=== PATIENT | female | born 1985 | race Caucasian/White ===

== ENCOUNTER 2019-05-04 11:50 | Day surgery (SDC) | payer OTHER ==
[~2019-05-04] VITALS: Ht 167.6 cm; Wt 101.8 kg
[2019-05-04 12:32] VITALS: BP 141/76; PULSE 87; TEMP 98
--- NOTE | 2019-05-04 12:50 | NUR ---
Having emesis of liquid returns. Zofran 4mg IV given.
--- NOTE | 2019-05-04 13:01 | NUR ---
Continues to complain of pain and medicated with Tordal 15mg IV. Will continue to monitor.
--- NOTE | 2019-05-04 15:21 | NUR ---
Awake and complains of pain. Morphine 3mg IV repeated for pain and allowed to rest.
[2019-05-04] MEDS ORDERED: EZFE 200200 MG PO (15:46)
[2019-05-04 17:00] VITALS: BP 132/64; PULSE 85; TEMP 97.6
--- NOTE | 2019-05-04 17:00 | NUR ---
PATIENT ADMITED INTO ROOM 328 POST OP RIGHT KIDNEY STONE REMOVAL. PATIENT REPORTS PAIN IS SO MUCH BETTER. PATIENT AMBULATED TO BATHROOM AND WAS ABLE TO VOID. C/O MILD BURING WITH URINATION. PATIENT GIVEN EDUCATION ABOUT POST KIDNEY STONE REMOVAL. AT BEDSIDE. VSS. WILL DISCHARGE HOME LATER TONIGHT. GIVEN SCRIPTS. PATIENT AND LIVE IN [place]. ORIENTED TO ROOM. LIQUIDS AND JELLO AT BEDSIDE. NO C/O N/V. IV FLUIDS INFUSING INTO LEFT HAND IV. NO OTHER NEEDS AT THIS TIME. CALL LIGHT IN REACH.
[2019-05-04 17:15] VITALS: BP 114/71; PULSE 91
[2019-05-04 17:30] VITALS: BP 117/71; PULSE 87
[2019-05-04 17:45] VITALS: BP 115/72; PULSE 86
--- NOTE | 2019-05-04 19:30 | NUR ---
Has met discharge criteria. Tolerating PO. Denies pain/nausea/shortness of breath. Has voided x3 without difficulty. VS stable. Discharge instructions given both verbal and handwritten. Discussed f/u appt, s/s of infection and home medications. Denies questions. IV DCd-cath intact. Discharged home in stable condition accompanied by .
[2019-05-04 19:45] VITALS: BP 116/68; PULSE 86; TEMP 98
== END 2019-05-04 19:45 | disposition home or self-care (01) ==
LOC: SDCO 11:50 → EDBD 11:50 → JCC 19:00 → SDCO 19:45
DX: N20.1 Calculus of ureter (principal)
CPT/HCPCS: OP; C1769; J0690; J1885; J2270; J2405; J2704; J3010; J7030; Q9967

== ENCOUNTER 2021-07-12 06:46 | Day surgery (SDC) | payer OTHER ==
[~2021-07-12] VITALS: Ht 167.6 cm; Wt 106.1 kg
[2021-07-12] VITALS (8 sets, daily range): BP systolic 107–122; BP diastolic 58–81; PULSE 77–95; TEMP 97.5–98.8
[~2021-07-12 06:46] MED LIST: EZFE 200200 MG PO
[2021-07-12] MEDS ORDERED: IRON TABLETS325 MG PO (08:13)
[2021-07-12] MEDS ORDERED: CRANBERRY FRUI425 MG PO (08:13)
[2021-07-12] MEDS ORDERED: OMEGA-3 1000 MG1 CAP PO (08:13)
[2021-07-12] MEDS ORDERED: PROBIOTIC-MAJOR PO (08:14)
[2021-07-12] MEDS ORDERED: MULTI VITAMINS1 TAB PO (08:14)
[2021-07-12] MEDS ORDERED: MOTRIN 800800 MG/TAB PO (08:27)
[2021-07-12] MEDS ORDERED: PERCOCET 325 MG1 TA2 PO (08:27)
--- NOTE | 2021-07-12 12:10 | NUR ---
Pt arrived on unit from PACU via bed. Report received. at the bedside. Oriented pt to room, bed and call light within reach. Plan of care reviewed.
--- NOTE | 2021-07-12 19:15 | NUR ---
PT RESTING IN BED WATCHING TV, NO SIGNS OF DISTRESS. PT REQUESTS PO TYLENOL TO HELP WITH BREAK THROUGH PAIN AND ALLOW FOR HER TO GET SOME REST. RN OFFERED WARM PACK FOR PT'S ABDOMEN AND SHE REFUSED AT THIS TIME. IV FLUSHED WITH 10ML NS, PT DENIES PAIN. NO REDNESSNESS NOTED AT THE SITE. SCDS APPLIED BILATERALLY, CALL LIGHT WITHIN REACH AND PT DENIES FURTHER NEEDS AT THIS TIME.
--- NOTE | 2021-07-12 21:00 | NUR ---
PT RESTING IN BED, NO SIGNS OF DISTRESS. PT REPORTS FEELING THE URGE TO URINATE. RN INSPECTED REED CATHETER TUBING AND NO KINKS ARE OBSERVED. RN DRAINED REED CATHETER RESERVE BACK OF 2500ML OF URINE. URINE IS CLEAR. PT STATES URGE TO URINATE IS GONE ONCE REED CATHETER BAG WAS DRAINED. PT GIVEN ONE 100MG SCHEDULED COLACE. PT STATES PAIN IS BETTER AFTER TYLENOL AND DENIES FURTHER NEEDS AT THIS TIME. CALL LIGHT IS WITHIN REACH.
--- NOTE | 2021-07-12 22:00 | NUR ---
PT CALLED RN TO BEDSIDE AND REPORTS FEELING THE URGE TO URINATE. RN INSPECTED REED CATHETER FOR KINKS AND ADJUSTED THE POSITION OF THE TUBING. FOLLOWING TUBING ADJUSTMENT, 800ML URINE DRAINED FROM BLADDER. PT REPORTS THE URGE IS GONE FOLLOWING THE DRAINAGE. PT DENIES FURTHER NEEDS AT THIS TIME.
--- NOTE | 2021-07-12 23:00 | NUR ---
PT APPEARS TO BE SLEEPING, NO SIGNS OF DISTRESS.
[2021-07-13] VITALS: BP 112/66; PULSE 75; TEMP 97.9
--- NOTE | 2021-07-13 | NUR ---
PT APPEARS TO BE SLEEPING BUT RESPONDS TO VERBAL COMMANDS. PT DENIES FELLING PAIN AT THIS TIME. PT GIVEN 800MG PO SCHEDULED MOTRIN. PT DENIES FURTHER NEEDS AT THIS TIME, CALL LIGHT WITHIN REACH
--- NOTE | 2021-07-13 02:00 | NUR ---
PT APPEARS TO BE SLEEPING, NO SIGNS OF DISTRESS.
--- NOTE | 2021-07-13 04:00 | NUR ---
PT APPEARS TO BE SLEEPING, NO SIGNS OF DISTRESS NOTED. PT DENIES FURTHER NEEDS AT THIS TIME.
--- NOTE | 2021-07-13 05:45 | NUR ---
PT APPEARS TO BE SLEEPING, NO SIGNS OF DISTRESS NOTED.
[2021-07-13 07:30] VITALS: BP 108/57; PULSE 68; TEMP 98.2
--- NOTE | 2021-07-13 10:45 | NUR ---
PT UP AMBULATING IN ROOM, VOIDS 250CC CLEAR YELLOW URINE AT THIS TIME, DENIES DIFFICULTY. PT TOLERATING PO DIET AND FLUIDS WELL. PAIN MANAGEABLE ON PO TYLENOL AND MOTRIN, DENIES NEED FOR NARCOTICS. VITAL SIGNS STABLE. SCANT SPOTTING ON PANTY LINER WITH TOILETING. DENIES QUESTIONS OR CONCERNS AT THIS TIME.
--- NOTE | 2021-07-13 11:10 | NUR ---
ALL DC PAPERWORK AND INSTRUCTIONS REVIEWED AND UNDERSTOOD BY PT AND SPOUSE. PT DENIES FURTHER QUESTIONS AND CONCERNS. DENIES NEEDS. APPRECIATIVE OF CARES RECIEVED AT [facility]. AMBULATORY FROM UNIT WITH ALL BELONGINGS ACCOUNTED FOR.
--- NOTE | 2021-07-13 13:06 | NUR ---
Before patient discharged stopped by and visited briefly.
== END 2021-07-13 11:10 | disposition home or self-care (01) ==
LOC: SDCO 06:46 → OB 12:20 → SDCO 07-13 11:10
DX: D25.1 Intramural leiomyoma of uterus (principal); N92.0 Excessive and frequent menstruation with regular cycle; K42.9 Umbilical hernia without obstruction or gangrene; N39.0 Urinary tract infection, site not specified; N88.8 Other specified noninflammatory disorders of cervix uteri; D64.9 Anemia, unspecified; E66.9 Obesity, unspecified; E78.00 Pure hypercholesterolemia, unspecified; Z79.899 Other long term (current) drug therapy
CPT/HCPCS: OP; A4314; C1781; J0690; J1100; J1170; J1885; J2405; J2704; J2710; J3010; J7120